=== PATIENT | female | born 1980 | race African-American/Black ===

== ENCOUNTER 2016-10-22 09:45 | Emergency (ER) | payer MEDICAID ==
[2016-10-22 10:43] LABS: BASOPHILS 0.1 % (0.0-2.0); EOSINOPHILS 1.3 % (0-7); HEMATOCRIT 35.2 % (36.0-48.0); HEMOGLOBIN 11.8 g/dL (12-16); IMMATURE GRANULOCYTES 0.1 % (0-5); LYMPHOCYTES 27.2 % (15-50); MCH 28.3 pg (26.0-34.0); MCHC 33.5 g/dL (31.0-37.0); MCV 84.4 fL (80.0-100.0); MEAN PLATELET VOLUME 9.9 fL (7.4-10.4); NEUTROPHILS 66.3 % (40-80); RBC 4.17 10x6/uL (4.00-5.40); RDW 14.2 % (11.5-14.5); WBC 6.9 10x3/uL (4.8-10.8)
[2016-10-22 10:45] LABS: PLATELET COUNT 233 10x3/uL (130-400)
[2016-10-22 10:56] LABS: HCG SERUM POSITIVE (NEGATIVE)
== END 2016-10-22 14:24 | disposition home or self-care (01) ==
LOC: D.ER 09:45
PROVIDERS: Emergency Medicine
DX: O20.9 Hemorrhage in early pregnancy, unspecified (principal); F17.200 Nicotine dependence, unspecified, uncomplicated